=== PATIENT | male | born 2000 | race Asian ===

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

== ENCOUNTER 2020-04-15 09:42 | Emergency (ER) | payer BC, OTHER ==
[2020-04-16 12:18] LABS: SARS-CoV-2 MS2 Positive; SARS-CoV-2 N Gene Negative; SARS-CoV-2 S Gene Negative; SARS-CoV-2 orf1ab Negative
== END 2020-04-15 10:03 | disposition home or self-care (01) ==
LOC: ERS 09:42
DX: R05 Cough (principal); Z20.828 Contact with and (suspected) exposure to other viral communicable diseases; J45.909 Unspecified asthma, uncomplicated
CPT/HCPCS: 87635; 99283; U0003